=== PATIENT | female | born 1950 | race Caucasian/White ===

== ENCOUNTER 2017-04-02 12:15 | Emergency (ER) | payer SELFPAY ==
[~2017-04-02] VITALS: Ht 162.6 cm; Wt 65.8 kg
[2017-04-02] MEDS ORDERED: RT-IPRATROPIUM (ATROVENT) 0.5MG/2.5ML AMP IH ONE ×2 (12:24→12:30)
[2017-04-02] MEDS ORDERED: RT-ALBUTEROL SULF 2.5 MG/3 ML PRE-MIX VIAL INH ONE (12:24)
[2017-04-02] MEDS ORDERED: DEXAMETHASONE PF 10 MG/ML (DECADRON) VIAL IV STA (12:25)
[2017-04-02] MEDS ORDERED: DEXAMETHASONE 10 MG/ML (DECADRON) 1 ML VIAL ONE (12:30)
[2017-04-02] MEDS ORDERED: RT-ALBUTEROL SULF 2.5 MG/3 ML PRE-MIX VIAL INH SCH (12:30)
[2017-04-02] MEDS ORDERED: RT-ALBUTEROL/IPRATROPIUM 3 ML (DUONEB) VIAL INH ONE (12:30)
--- NOTE | 2017-04-02 14:05 | ED Respiratory ---
General Chief Complaint: Respiratory Problems Stated Complaint: ASTHMA ATTACK History of Present Illness Time seen by provider: 12:15 Initial Comments 67-year-old female reports acute asthma exacerbation. She last used her albuterol inhaler at 0900 today. Timing/Duration: just prior to arrival Severity: moderate Prior Episodes/Possible Cause: occasional episodes Modifying Factors: Improves With Albuterol Inhaler Associated Symptoms: shortness of breath Allergies and Home Medications Allergies Coded Allergies: Sulfa (Sulfonamide Antibiotics) (Verified Allergy, Unknown, 04/02/17) codeine (Verified Allergy, Unknown, 04/02/17) erythromycin base (Verified Allergy, Unknown, 04/02/17) Home Medications Prednisone 10 Mg Tab, 10 MG PO BID, #6 Ref 0 Prescribed by: PARISA LEDEZMA on 04/02/17 1427 Constitutional: no symptoms reported, see HPI Respiratory: see HPI, dyspnea on exertion, short of breath, wheezing All Other Systems Reviewed Negative Unless Noted: Yes Past Pffozhg-Zvzoqt-Kagewl Hx Cardiovascular History of Cardiac Disorders: Yes (Tachycardia) Reviewed Nursing Assessment Reviewed/Agree w Nursing PMH: Yes Physical Exam Vital Signs Vital Sign - Last 12Hours 04/02/17 04/02/17 12:15 12:31 Temp 98.2 Pulse 102 Resp 24 B/P (MAP) 132/88 (103) Pulse Ox 98 O2 Delivery Nasal Cannula O2 Flow Rate 1.00 Capillary Refill : General Appearance: WD/WN, mild distress Eyes: Bilateral Eye Normal Inspection, Bilateral Eye PERRL, Bilateral Eye EOMI HEENT: PERRL/EOMI, normal ENT inspection, TMs normal, pharynx normal Neck: non-tender, full range of motion, normal inspection, No lymphadenopathy ( R), No lymphadenopathy (L) Respiratory: chest non-tender, respiratory distress, decreased breath sounds, wheezing (Bilateral lower lobes) Cardiovascular: normal peripheral pulses, regular rate, rhythm, no edema, no murmur Gastrointestinal: normal bowel sounds, non tender, soft Extremities: normal range of motion, non-tender, normal inspection Neurologic/Psychiatric: no motor/sensory deficits, alert, normal mood/affect, oriented x 3 Skin: normal color, warm/dry Lymphatic: no adenopathy Progress/Results/Core Measures Suspected Sepsis SIRS Temperature: Pulse: Respiratory Rate: Blood Pressure / Mean: Results/Orders My Orders Orders - PARISA LEDEZMA Chest Pa/Lat (2 View) (1/1/18 12:25) Dexamethasone Pf Injection (Decadron Pf (04/02/17 12:25) Medications Given in ED Current Medications Medications Dose Ordered Sig/Kasey Route Start Time Stop Time Status Last Admin Dose Admin Albuterol/ Ipratropium 3 ml ONCE ONCE INH 04/02/17 12:30 04/02/17 12:31 DC 04/02/17 12:30 3 ML Dexamethasone Sodium Phosphate 10 mg STK-MED ONCE .ROUTE 04/02/17 12:30 04/02/17 12:32 DC 04/02/17 12:34 10 MG Ipratropium [place] 0.5 mg STK-MED ONCE IH 04/02/17 12:24 04/02/17 12:28 DC 04/02/17 12:29 0.5 MG Vital Signs/I&O Vital Sign - Last 12Hours 04/02/17 04/02/17 04/02/17 04/02/17 12:15 12:31 12:32 14:41 Temp 98.2 98.2 Pulse 102 90 Resp 24 18 B/P (MAP) 132/88 (103) Pulse Ox 98 100 100 99 O2 Delivery Nasal Cannula Nasal Cannula O2 Flow Rate 1.00 1.00 1.00 Capillary Refill : Progress Note : Time: 12:15 Progress Note Initial evaluation completed, patient's SaO2 on room air is 98%, placed on O2 per nasal cannula at 2 L. SaO2 100% with oxygen on. Patient extremely short of breath difficult to obtain history. 1225 respiratory therapy here for breathing treatment. Patient more relaxed at present time and reports that she inhaled exhaust while scraping her car windows , and this set off her asthma. 1315 patient reports improvement in symptoms she is taking big breathing treatment at the present time with no difficulty. 1330 breathing treatment completed, patient denies shortness of breath, lung sounds improved with no wheezing. Will obtain chest x-ray and them plan for discharge. 1400 discharge planning reviewed with the patient and her , return precautions reviewed. All questions answered. Diagnostic Imaging Diagonstic Imaging: Xray Plain Films/CT/US/NM/MRI: chest Comments NAME: DANIELLE RODRIGUES Denis MED REC#: [id number] PT STATUS: REG ER : 1950 PHYSICIAN: PARISA LEDEZMA ADMIT DATE: 04/02/17/ER Draft Date of Exam:04/02/17 CHEST PA/LAT (2 VIEW) INDICATION: Asthma attack. FINDINGS: Lung volumes symmetric and normal. No airway thickening or bronchiectasis. No infiltrate, effusion or pneumothorax. IMPRESSION: No acute appearing abnormality. Dictated on workstation # [id number] Dict: 04/02/17 1408 Trans: 04/02/17 1410 [facility] [id number] Interpreted by: DIEUDONNE HINTON Electronically signed by: Reviewed: Reviewed by Me Departure Impression Impression: Primary Impression: Asthma exacerbation Qualified Codes: J45.41 - Moderate persistent asthma with (acute) exacerbation Disposition: HOME, SELF-CARE Condition: Improved Departure-Patient Inst. Decision time for Depature: 14:15 Referrals: UNKNOWN (PCP) Primary Care Physician VINEET REYNOSO MD (Family) Primary Care Physician Add. Discharge Instructions: Continue taking her regular asthma medicine as directed. Return to emergency department if difficulty breathing, new problems or concerns. All discharge instructions reviewed with patient and/or family. Voiced understanding. Scripts Prednisone (Prednisone) 10 Mg Tab 10 MG PO BID, #6 TAB 0 Refills Prov: PARISA LEDEZMA 04/02/17 PARISA LEDEZMA Apr 02, 2017 14:05
--- NOTE | 2017-04-02 14:10 | Diagnostic Imaging Report ---
INDICATION: Asthma attack. FINDINGS: Lung volumes symmetric and normal. No airway thickening or bronchiectasis. No infiltrate, effusion or pneumothorax. IMPRESSION: No acute appearing abnormality. Dictated by: Dictated on workstation # [id number]
[2017-04-02] MEDS ORDERED: PRD10T PO (14:27)
[2017-04-02 14:41] VITALS: BP 128/82
== END 2017-04-02 14:41 | disposition home or self-care (01) ==
LOC: EDUNIT# 12:15 → ER 12:16
DX: J45.901 Unspecified asthma with (acute) exacerbation (principal)
CPT/HCPCS: 71046; 94640; 99282